=== PATIENT | male | born 1965 | race Two or more races ===

== ENCOUNTER 2020-11-15 12:15 | Emergency (ER) | payer SELFPAY ==
[~2020-11-15] VITALS: Ht 165.1 cm; Wt 70.3 kg
--- NOTE | 2020-11-15 12:30 | NUR ---
Dr Guerra at the bedside for MSE.
[2020-11-15] MEDS ORDERED: TDAP DIPH,PERTUSS,TET VAC/PF 0.5 ML DISP.SYRIN IM ONE ×3 (12:45→12:54)
[2020-11-15] MEDS ORDERED: LIDOCAINE HCL 1% 20 ML VIAL IJ ONE (12:45)
[2020-11-15] MEDS ORDERED: LIDOCAINE HCL 1% 20 ML VIAL ONE (12:53)
--- NOTE | 2020-11-15 14:01 | NUR ---
Preesure dressing applied to RT hand, suture site. No acute bleeding noted.
[2020-11-15] MEDS ORDERED: SULF1TAB48 PO (14:03)
[2020-11-15 14:07] VITALS: BP 138/77
--- NOTE | 2020-11-15 14:07 | NUR ---
Patient discharged to home in stable condition. Written and verbal after care instructions given. Patient verbalizes understanding of instructions. Stressed follow up or return to ER for worsening s/s.
== END 2020-11-15 14:08 | disposition home or self-care (01) ==
LOC: ER 12:15
DX: S61.411A Laceration without foreign body of right hand, initial encounter (principal); W45.8XXA Other foreign body or object entering through skin, initial encounter; Y92.89 Other specified places as the place of occurrence of the external cause
CPT/HCPCS: 12042; 90471; 90715; 99284; J3490; A4217; A4663

== ENCOUNTER 2020-11-17 14:01 | Emergency (ER) | payer OTHER ==
[~2020-11-17] VITALS: Ht 167.6 cm; Wt 72.6 kg
[~2020-11-17 14:01] MED LIST: SULF1TAB48 PO
== END 2020-11-17 14:29 | disposition home or self-care (01) ==
LOC: ER 14:01
DX: S61.411D Laceration without foreign body of right hand, subsequent encounter (principal); W26.0XXD Contact with knife, subsequent encounter
CPT/HCPCS: A4217; A4663